=== PATIENT | female | born 1975 | race American Indian/Alaskan Native ===

== ENCOUNTER 2018-11-09 07:23 | Emergency (ER) | payer SELFPAY ==
[2018-11-09] MEDS ORDERED: ALUM-MAG HYDROX-SIMETH 200-200-20MG/5ML PO ONE (07:41)
[2018-11-09] MEDS ORDERED: LIDOCAINE VISCOUS 2% PO ONE (07:41)
--- NOTE | 2018-11-09 07:45 | Emergency Department Report ---
ED Chest Pain HPI - General Chief Complaint: Chest Pain Stated Complaint: CHEST PAIN Time Seen by Provider: 11/09/18 07:37 Source: patient Mode of arrival: Ambulatory Limitations: No Limitations - History of Present Illness Initial Comments: Patient is 43 years old female with no significant past medical history except for an anxiety. Patient presented to the ER complaining of chest pain, substernal, burning sensation with no radiation. Patient stated that symptoms started today. Patient denied any shortness of breath, fever or chills. No nausea or vomiting. MD Complaint: chest pain -: Sudden, This morning Onset: during rest Pain Location: substernal Pain Radiation: none Severity: moderate Quality: other (BURNING) Improves With: nothing - Related Data Home Medications Medication Instructions Recorded Confirmed Last Taken Duloxetine HCl [Cymbalta] 60 mg PO QDAY 04/27/13 04/27/13 04/26/13 09:00 Levothyroxine [Synthroid] 175 mcg PO QAM 04/27/13 04/27/13 04/26/13 09:00 Previous Rx's Medication Instructions Recorded Last Taken Type Promethazine [Phenergan] 25 mg NC Q6HR PRN #10 supp.rect 04/27/13 Unknown Rx Allergies Allergy/AdvReac Type Severity Reaction Status Date / Time No Known Allergies Allergy Verified 11/09/18 07:23 Heart Score - HEART Score History: Slightly suspicious EKG: Normal Age: < 45 Risk factors: No known risk factors Troponin: < normal limit HEART Score: 0 - Critical Actions Critical Actions: 0-3 pts:0.9-1.7%risk of adverse cardiac event.Candidate for discharge ED Review of Systems ROS: Stated complaint: CHEST PAIN Other details as noted in HPI Comment: All other systems reviewed and negative Constitutional: denies: chills, fever Respiratory: denies: cough, orthopnea, shortness of breath, SOB with exertion, wheezing Cardiovascular: chest pain. denies: palpitations, dyspnea on exertion, orthopnea Gastrointestinal: denies: abdominal pain, nausea, vomiting, hematemesis, melena, hematochezia Neurological: denies: headache, weakness, numbness, paresthesias, confusion, abn ormal gait, vertigo Psychiatric: anxiety. denies: depression ED Past Medical Hx - Surgical History Additional Surgical History: thyroidectomy - Social History Smoking Status: Never Smoker Substance Use Type: Alcohol - Medications Home Medications: Home Medications Medication Instructions Recorded Confirmed Last Taken Type Duloxetine HCl [Cymbalta] 60 mg PO QDAY 04/27/13 04/27/13 04/26/13 09:00 History Levothyroxine [Synthroid] 175 mcg PO QAM 04/27/13 04/27/13 04/26/13 09:00 History Promethazine [Phenergan] 25 mg NC Q6HR PRN #10 supp.rect 04/27/13 Unknown Rx ED Physical Exam - General Limitations: No Limitations General appearance: alert, in no apparent distress, anxious - Head Head exam: Present: atraumatic, normocephalic, normal inspection - Eye Eye exam: Present: normal appearance - ENT ENT exam: Present: normal exam, normal orophraynx, mucous membranes moist - Neck Neck exam: Present: normal inspection, full ROM. Absent: tenderness, meningismus, lymphadenopathy, thyromegaly - Respiratory Respiratory exam: Present: normal lung sounds bilaterally - Cardiovascular Cardiovascular Exam: Present: regular rate, normal rhythm, normal heart sounds - GI/Abdominal GI/Abdominal exam: Present: soft, normal bowel sounds. Absent: distended, tenderness, guarding, rebound, rigid, organomegaly, mass, bruit, pulsatile mass, hernia - Extremities Exam Extremities exam: Present: normal inspection, full ROM, normal capillary refill - Back Exam Back exam: Present: normal inspection, full ROM. Absent: CVA tenderness (R), CVA tenderness (L), muscle spasm, paraspinal tenderness, vertebral tenderness - Neurological Exam Neurological exam: Present: alert, oriented X3, CN II-XII intact, normal gait, reflexes normal - Skin Skin exam: Present: warm, intact, normal color ED Course Vital Signs 11/09/18 11/09/18 11/09/18 07:25 07:30 10:51 Temperature 98.6 F 98.2 F Pulse Rate 72 70 60 Respiratory 20 18 18 Rate Blood Pressure 123/85 Blood Pressure 130/91 114/74 [Right] O2 Sat by Pulse 100 100 Oximetry ED Medical Decision Making - Lab Data Result diagrams: 11/09/18 07:44 11/09/18 07:44 - EKG Data -: EKG Interpreted by [facility] EKG shows normal: sinus rhythm Rate: normal - EKG Data Interpretation: no acute changes - Radiology Data Radiology results: report reviewed CTA chest is negative for acute finding. No pulmonary embolism. - Medical Decision Making Patient is 43 years old female with no significant past medical history except for an anxiety. Patient presented to the ER complaining of chest pain, substernal, burning sensation with no radiation. Patient stated that symptoms started today. Patient denied any shortness of breath, fever or chills. No nausea or vomiting. Patient EKG is unremarkable. Chest x-ray is negative. Troponin is negative. D-dimer slightly elevated patient received a CTA chest with no evidence of pulmonary embolism. Patient stated that she improved significantly with Mylanta and vicious lidocaine. Patient's symptom is most likely related to GERD but I also advised the patient to follow-up outpatient with her primary care physician for cardiac workup. Patient also advised to return to the ER if symptoms are not improved. Critical care attestation.: If time is entered above; I have spent that time in minutes in the direct care of this critically ill patient, excluding procedure time. ED Disposition Clinical Impression: Chest pain, GERD (gastroesophageal reflux disease) Disposition: TO HOME OR SELFCARE Is pt being admited?: No Condition: Stable Instructions: Chest Pain (ED) Referrals: MYA BERNABE MD [Primary Care Provider] - 3-5 Days
[2018-11-09 07:53] LABS: Basophils % (Auto) 0.4 % (0.0-1.8); Eosinophils % (Auto) 0.2 % (0.0-4.3); Hematocrit 31.6 % (30.3-42.9); Lymphocytes % (Auto) 24.5 % (13.4-35.0); Mean Corpuscular HGB Conc 32 % (30-34); Mean Corpuscular Volume 70 fl (79-97); Monocytes # (Auto) 0.5 K/mm3 (0.0-0.8); Monocytes % (Auto) 13.3 % (0.0-7.3); Platelet Count 325 K/mm3 (140-440); Red Blood Count 4.51 M/mm3 (3.65-5.03); Red Cell Distribution Width 18.2 % (13.2-15.2)
[2018-11-09 08:10] LABS: BUN/Creatinine Ratio 13; Blood Urea Nitrogen 10 mg/dL (7-17); Calcium 8.9 mg/dL (8.4-10.2); Hemolysis Index 2
--- NOTE | 2018-11-09 09:25 | XRay Report ---
ROUTINE CHEST, TWO VIEWS: HISTORY: chest pain. The trachea, heart, mediastinal contour, lung grimes and bony thorax are unremarkable. IMPRESSION: Unremarkable chest x-ray.
[2018-11-09 09:26] LABS: Bilirubin,Urine NEG (Negative); Blood,Urine NEG (Negative); Color,Urine Yellow (Yellow); Mucus,Urine 2+ /HPF; Protein,Urine <15 mg/dL mg/dL (Negative); RBC,Urine < 1.0 /HPF (0.0-6.0)
[2018-11-09 09:35] LABS: Benzodiazepines Screen,Urine PRESUMPTIVE NEGATIVE; Cocaine Screen,Urine PRESUMPTIVE NEGATIVE; Methadone Screen,Urine PRESUMPTIVE NEGATIVE; Opiate Screen,Urine PRESUMPTIVE NEGATIVE
[2018-11-09 09:48] LABS: Amphetamine Screen,Urine PRESUMPTIVE POSITIVE; Cannabinoid Screen,Urine PRESUMPTIVE POSITIVE
[2018-11-09 10:52] VITALS: BP 114/74
--- NOTE | 2018-11-09 11:26 | Cat Scan Report ---
CTA CHEST: HISTORY: Chest pain, shortness of breath. COMPARISON: none. TECHNIQUE: Helical CT in 1.25mm intervals following IV contrast. Pulmonary embolus protocol. Sagittal and coronal reformatted images. Rotational MIP images. FINDINGS: Contrast bolus is satisfactory. No pulmonary embolus is identified. Thyroid gland: Normal. Tracheobronchial tree: Normal. Esophagus: Normal. Heart: Normal. Pericardium: Normal. Mediastinum: Normal. Lung Santiago: normal. Pleural Spaces: Normal. Musculoskeletal: Normal. IMPRESSION: No evidence for pulmonary embolus. Unremarkable CT chest with contrast.
== END 2018-11-09 11:49 | disposition home or self-care (01) ==
LOC: ED 07:23
DX: K21.9 Gastro-esophageal reflux disease without esophagitis (principal); Z90.89 Acquired absence of other organs
CPT/HCPCS: 36415; 71046; 71275; 80048; 80307; 81001; 83690; 84484; 84703; 85025; 85379; 93005; 93010; Q9967